=== PATIENT | female | born 1970 | race Caucasian/White ===

== ENCOUNTER 2016-10-07 21:29 | Emergency (ER) | payer MEDICAID ==
[~2016-10-07] VITALS: Ht 167.6 cm; Wt 141.7 kg
[~2016-10-07 21:29] MED LIST: ALBUPOW26; CLON0.5T; FLUT100M7; LOVOXIL; PANTPAK; PAXIL; PERCOT; PRO20T; TRAM50TA2
[2016-10-07 21:57] VITALS: BP 125/71
== END 2016-10-08 02:00 | disposition left against medical advice (07) ==
LOC: ER 21:41
DX: R10.13 Epigastric pain (principal); R06.02 Shortness of breath; M54.9 Dorsalgia, unspecified; G43.909 Migraine, unspecified, not intractable, without status migrainosus; Z53.21 Procedure and treatment not carried out due to patient leaving prior to being seen by health care provider
CPT/HCPCS: 93005

== ENCOUNTER 2017-01-27 23:57 | Emergency (ER) | payer MEDICAID ==
[~2017-01-27] VITALS: Ht 167.6 cm; Wt 136.5 kg
[2017-01-28 00:08] VITALS: BP 125/76
== END 2017-01-28 00:51 | disposition left against medical advice (07) ==
LOC: ER 23:57
DX: R10.9 Unspecified abdominal pain (principal); R11.2 Nausea with vomiting, unspecified; Z53.21 Procedure and treatment not carried out due to patient leaving prior to being seen by health care provider
CPT/HCPCS: 93005

== ENCOUNTER 2017-02-23 03:41 | Emergency (ER) | payer MEDICAID ==
[~2017-02-23] VITALS: Ht 167.6 cm; Wt 137.9 kg
[2017-02-23 04:27] LABS: Basophils # (auto) 0.2 uL; Basophils % (auto) 1.7 % (0.0-2.0); CONDITION Y; Eosinophils # (auto) 0.1 uL; Eosinophils % (auto) 1.5 % (0.0-7.0); Hematocrit 41.1 % (36.0-46.0); Hemoglobin 13.5 g/dL (12.2-16.2); Lymphocytes # (auto) 2.3 uL; Lymphocytes % (auto) 26.2 % (10.0-50.0); Mean Corpuscular Hemoglobin 27.8 pg (28.0-32.0); Mean Corpuscular Hgb Conc. 32.8 g/dL (32.0-36.0); Mean Corpuscular Volume 84.9 fL (80.0-100.0); Mean Platelet Volume 11.2 fL (7.4-10.4); Monocytes # (auto) 0.6 uL; Monocytes % (auto) 6.6 % (0.0-12.0); Neutrophils # (auto) 5.6 uL; Platelet Count (auto) 171 10^3/uL (140-450); Red Cell Distribution Width 15.8 % (11.6-16.0); White Blood Cell 8.8 10^3/uL (4.4-10.8)
[2017-02-23 04:44] LABS: INR 1.05 (0.9-1.15); Partial Thromboplastin Time 30.2 sec (22.64-33.71); Prothrombin Time 11.4 sec (9.37-12.3)
[2017-02-23 04:51] LABS: Albumin 3.7 g/dL (3.4-5.0); Potassium 3.5 mmol/L (3.5-5.1)
[2017-02-23 04:53] LABS: BUN/Creatinine Ratio 17.8
[2017-02-23 04:55] LABS: Bilirubin, Total 0.5 mg/dL (0.2-1.0); Total Protein 8.7 g/dL (6.4-8.2)
[2017-02-23] MEDS ORDERED: SUMAtriptan SUCCINATE 25 MG TAB PO ONE ×3 (05:00→05:14)
[2017-02-23] MEDS ORDERED: SODIUM CHLORIDE 0.9% 2,000 ML IV ONE (05:00)
[2017-02-23] MEDS ORDERED: ALUM & MAG HYDROX-SIMETH LIQ(MAALOX) 30 ML PO ONE (05:00)
[2017-02-23] MEDS ORDERED: LIDOCAINE VISCOUS 2% 15ML UD PO ONE (05:00)
[2017-02-23] MEDS ORDERED: DONNATAL 5ml ORAL Elix (BELLADONNA ALK-PHENOBARB) PO ONE (05:00)
[2017-02-23] MEDS ORDERED: METOCLOPRAMIDE HCL 5MG/ml INJ 2ml VIAL IV ONE (05:00)
[2017-02-23] MEDS ORDERED: diphenhdrAMINE HCL 25 MG CAP PO ONE (05:00)
[2017-02-23] MEDS ORDERED: IOHEXOL 300 MG/ML 100ML BOTTLE IJ ONE (05:14)
[2017-02-23] MEDS ORDERED: SODIUM CHLORIDE 0.9% 1,000 ML IV ONE (05:15)
[2017-02-23 06:20] VITALS: BP 120/60
[2017-02-23 06:21] LABS: Urine Bilirubin Negative (Negative); Urine Blood 2+ /uL (Negative); Urine Color Yellow (Yellow); Urine Glucose Normal (Normal); Urine Hyaline Cast MOD /lpf (0 - 2); Urine Ketone Negative (Negative); Urine Nitrite Negative (Negative); Urine RBC 1 /hpf (0 - 4); Urine Squamous Epithelial Cell FEW /hpf (<5); Urine Urobilinogen Normal (Negative)
== END 2017-02-23 06:28 | disposition left against medical advice (07) ==
LOC: ER 03:41
DX: G43.909 Migraine, unspecified, not intractable, without status migrainosus (principal); R10.13 Epigastric pain; R19.7 Diarrhea, unspecified; J45.909 Unspecified asthma, uncomplicated; E11.9 Type 2 diabetes mellitus without complications; K21.9 Gastro-esophageal reflux disease without esophagitis; I10 Essential (primary) hypertension; E07.9 Disorder of thyroid, unspecified; Z90.49 Acquired absence of other specified parts of digestive tract; Z88.6 Allergy status to analgesic agent; Z88.8 Allergy status to other drugs, medicaments and biological substances; Z79.899 Other long term (current) drug therapy
CPT/HCPCS: 36415; 80053; 81001; 82150; 83690; 85025; 85610; 85730; 96374; 99284; J2765; J7030; Q9967